=== PATIENT | male | born 1955 | race Caucasian/White ===

== ENCOUNTER 2022-05-29 08:11 | Outpatient (CLI) | payer MEDICARE, SELFPAY ==
[2022-05-29 15:28] LABS: Albumin* 4.4 g/dL (3.3-5.0); Chloride* 105 mmol/L (96-114)
[2022-05-29 15:29] LABS: Potassium* 4.4 mmol/L (3.6-5.1); Sodium* 139 mmol/L (135-149)
[2022-05-29 15:31] LABS: Aspartate Amino Transferase* 39 U/L (12-35); Bilirubin Total* 0.9 mg/dL (0.1-1.5); Blood Urea Nitrogen* 18 mg/dL (7-30); Carbon Dioxide* 27 mmol/L (20-32); Cholesterol* 191 mg/dL (90-199); Creatinine* 0.7 mg/dL (0.5-1.5); Estimated Glomerular Filt Rate 102 ml/min
[2022-05-29 15:32] LABS: Alanine Aminotransferase* 70 U/L (4-50); Alkaline Phosphatase* 65 U/L (40-150); Calcium* 9.8 mg/dL (8.4-10.6); Glucose* 87 mg/dL (60-115); HDL Cholesterol* 46 mg/dL (>=40); LDL Cholesterol Calculated 124 mg/dL (<100); Triglycerides* 104 mg/dL (40-149)
[2022-05-29 16:03] LABS: PSA Screen* 3.02 ng/mL (0.10-4.00)
== END 2022-05-29 08:12 | disposition home or self-care (01) ==
PROVIDERS: PCP Family Medicine; Visit Provider Family Medicine
DX: Z00.00 Encounter for general adult medical examination without abnormal findings (principal); D64.9 Anemia, unspecified; R10.9 Unspecified abdominal pain; Z13.6 Encounter for screening for cardiovascular disorders; Z12.5 Encounter for screening for malignant neoplasm of prostate
CPT/HCPCS: 80053; 80061; 84153

== ENCOUNTER 2022-06-19 07:33 | Outpatient (CLI) | payer MEDICARE, SELFPAY ==
--- NOTE | 2022-06-19 08:00 | CRLHL7_ITS ---
For Patients: As a result of the Century Cures Act, medical imaging exams and procedure reports are released immediately into your electronic medical record. You may view this report before your referring provider. If you have questions, please contact your health care provider. INDICATION: Upper abdominal fullness. Diastasis. Prior appendectomy. TECHNIQUE: Contrast-enhanced CT of the abdomen and pelvis. 100 cc nonionic Isovue-370 administered. COMPARISON: None. FINDINGS: Clear included lung bases. No pleural or pericardial effusion. Thinning of the anterior abdominal wall. No direct hernia. No inguinal hernia. Normal-appearing liver, spleen, pancreas, gallbladder, and adrenal glands. The kidneys are negative for stones, masses, or obstruction. The stomach and duodenum although incompletely distended are within normal limits. The remainder of the small bowel is unremarkable. The colon is within normal limits. Surgically absent appendix. No diverticular disease. No acute inflammatory processes. Minimal scattered vascular calcification within a normal caliber abdominal aorta. Prostatic enlargement impinging upon the urinary bladder base. The urinary bladder is unremarkable. The seminal vesicles are within normal limits. No ascites or lymphadenopathy. The included skeleton is negative for acute fractures. Mild spurring of the lower thoracic/upper lumbar spine. IMPRESSION: 1. No acute abdominopelvic process identified. 2. No evidence for diastasis of the abdominal wall musculature. There is over thinning of the abdominal wall musculature. 3. Surgically absent appendix. Minimal vascular calcification in a normal caliber aorta. Prostatic enlargement. Please note that all CT scans at this facility use dose modulation, iterative reconstruction, and/or weight-based dosing when appropriate to reduce radiation dose to as low as reasonably achievable. Dictated by Selvin Orellana MD @ 06/19/2022 9:22:44 AM (Electronically Signed)
== END 2022-06-19 07:34 | disposition home or self-care (01) ==
PROVIDERS: PCP Family Medicine; Visit Provider Surgery
DX: R10.9 Unspecified abdominal pain (principal)
CPT/HCPCS: 74177; Q9967

== ENCOUNTER 2022-06-30 09:30 | Outpatient (CLI) | payer MEDICARE, SELFPAY | END 2022-06-30 09:31 | disposition home or self-care (01) | PROVIDERS: PCP Family Medicine; Visit Provider Internal Medicine | DX: Z12.11 Encounter for screening for malignant neoplasm of colon (principal) | CPT/HCPCS: 45378; J2250; J3010 ==

== ENCOUNTER 2022-09-22 08:48 | Outpatient (CLI) | payer MEDICARE, SELFPAY | END 2022-09-22 08:49 | disposition home or self-care (01) | LOC: NFLDREF 09-23 05:50 | PROVIDERS: PCP Family Medicine; Referring Provider Family Medicine; Visit Provider Family Medicine | DX: Z01.818 Encounter for other preprocedural examination (principal); Z01.812 Encounter for preprocedural laboratory examination; Z01.811 Encounter for preprocedural respiratory examination; R10.9 Unspecified abdominal pain; D64.9 Anemia, unspecified | CPT/HCPCS: 80076 ==

== ENCOUNTER 2024-04-27 14:05 | Outpatient (REF) | payer MEDICARE, SELFPAY ==
--- OUTSIDE RECORDS SUMMARY | 2024-04-27 14:10 | XMS_ITS | Clinical Summary ---
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 [facility] Allergies No known active allergies Medications Medication Sig Dispensed Refills Start Date End Date Status Meloxicam (MOBIC) 15 MG tabletIndications:Wri st pain, acute, right Take 1 Tablet by mouth daily. 21 Tablet 03/25/2018 Active Active Problems No known active problems Social History Tobacco Use Types Packs/Day Years Used Date Smoking Tobacco: Never Smokeless Tobacco: Never Sex and Gender Information Value Date Recorded Sex Assigned at Not on file Gender Identity Not on file Sexual Orientation Not on file Last Filed Vital Signs Vital Sign Reading Time Taken Comments Blood Pressure - - Pulse - - Temperature - - Respiratory Rate - - Oxygen Saturation - - Inhaled Oxygen Concentration - - Weight 74.8 kg (165 lb) 03/25/2018 1:20 PM CDT Height 180.3 cm (5' 11) 03/25/2018 1:20 PM CDT Body Mass Index 23.01 03/25/2018 1:20 PM CDT Plan of Treatment Health Maintenance Due Date Last Done Comments Colon Cancer Screening Plan Due 1955 Hep C Screening (Preventive Services) 1955 PSA Screening Discussion 1955 Adult Preventive Visit 1974 DTaP/Tdap/Td (1 - Tdap) 1975 Cholesterol 1991 Pneumococcal 65+ Yrs (1 - PCV) 2021 COVID-19 Vaccine (3 - 2023-2 5 season) 2024 09/01/2020, 08/11/2020 Influenza (#1) 2024 03/18/2020 RSV (1 - 1-dose 75+ series) 2031 Zoster/Shingles Completed 05/21/2020, 03/18/2020 HepA Aged Out No longer eligi ble based on patient's age to complete this topic HepB Aged Out No longer eligi ble based on patient's age to complete this topic Hib Aged Out No longer eligi ble based on patient's age to complete this topic IPV (Polio) Aged Out No longer eligi ble based on patient's age to complete this topic RSV Aged Out No longer eligi ble based on patient's age to complete this topic MCV4 Aged Out No longer eligi ble based on patient's age to complete this topic 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
[2024-04-27 14:51] LABS: C Reactive Protein* 2.3 mg/dL (0.5-1.0)
[2024-04-27 16:06] LABS: Erythrocyte SedimentationRate* 12 mm/hr (2-15)
== END 2024-04-27 14:06 | disposition home or self-care (01) ==
LOC: NPINS 14:05
PROVIDERS: PCP Family Medicine; Visit Provider Family Medicine Sports Medicine
DX: M25.50 Pain in unspecified joint (principal)
CPT/HCPCS: 85651; 86140

== ENCOUNTER 2024-10-11 09:27 | Outpatient (CLI) | payer MEDICARE, SELFPAY ==
--- NOTE | 2024-10-11 10:00 | CRLHL7_ITS ---
For Patients: As a result of the Century Cures Act, medical imaging exams and procedure reports are released immediately into your electronic medical record. You may view this report before your referring provider. If you have questions, please contact your health care provider. INDICATION: CALCIFICATION LEFT NECK COMPARISON: X-rays 09/19/2024, 11/01/2020 TECHNIQUE: Noncontrast CT neck performed. Please note that all CT scans at this facility use dose modulation, iterative reconstruction, and/or weight-based dosing when appropriate to reduce radiation dose to as low as reasonably achievable. FINDINGS: Coarse calcification noted at the left carotid bulb. Mild calcification at the right carotid bulb. No suspicious thyroid nodule. Lung apices are clear. No salivary duct stone is present. Normal larynx and pharynx. Sinuses are clear. Visualized brain parenchyma unremarkable. No adenopathy. IMPRESSION: Coarse calcification at the left carotid bulb. Please note that all CT scans at this facility use dose modulation, iterative reconstruction, and/or weight-based dosing when appropriate to reduce radiation dose to as low as reasonably achievable. Dictated by Maximus Aiken MD @ 10/11/2024 11:33:07 AM (Electronically Signed)
== END 2024-10-11 09:28 | disposition home or self-care (01) ==
LOC: CT 09:28
PROVIDERS: PCP Family Medicine; Visit Provider Family Medicine
DX: M54.2 Cervicalgia (principal); I65.22 Occlusion and stenosis of left carotid artery; M79.89 Other specified soft tissue disorders
CPT/HCPCS: 70490

== ENCOUNTER 2024-10-28 11:00 | Outpatient (CLI) | payer MEDICARE, SELFPAY ==
--- NOTE | 2024-10-28 11:15 | CRLHL7_ITS ---
For Patients: As a result of the Cures Act, medical imaging exams and procedure reports are released immediately into your electronic medical record. You may view this report before your referring provider. If you have questions, please contact your health care provider. CLINICAL HISTORY: Calcification of left carotid COMPARISON: CT 10/11/2024 TECHNIQUE: The carotid circulations and the vertebral arteries in the neck were examined with cisneros-scale ultrasound, color-flow and Doppler spectral analysis. Degrees of stenosis were determined using SRU 2002 Consensus Panel Criteria. FINDINGS: Sonographic images demonstrate bilateral atherosclerotic plaque formation, [id number], without suspicious soft tissue mass. There was antegrade blood flow demonstrated within the vertebral arteries and the subclavian arteries demonstrated a normal triphasic waveform. The spectral Doppler tracings of the common carotid, internal and external carotid arteries demonstrate no abnormal turbulence or spectral broadening. There was no significant elevation of peak systolic blood flow which would indicate a hemodynamically-significant stenosis by SRU criteria. The ICA/CCA peak systolic velocity ratio measures 1.1 on the right and 0.7 on the left. IMPRESSION: Less than 50 percent stenosis of the internal carotid arteries bilaterally. Moderate focal coarse calcification at the left carotid bulb again noted. Dictated by Maximus Aiken MD @ 10/31/2024 8:46:00 AM (Electronically Signed)
== END 2024-10-28 11:01 | disposition home or self-care (01) ==
LOC: US 11:00
PROVIDERS: PCP Family Medicine; Visit Provider Family Medicine
DX: I65.23 Occlusion and stenosis of bilateral carotid arteries (principal); M79.89 Other specified soft tissue disorders
CPT/HCPCS: 93880